=== PATIENT | female | born 1975 | race Caucasian/White ===

== ENCOUNTER 2018-10-25 06:37 | Day surgery (SDC) | payer OTHER ==
[~2018-10-25 06:37] MED LIST: ATACAND HCT 161 EACH; CLONAZEPAM1 MG; CYMBALTA60 MG; FORTAMET500 MG; LIPITOR40 MG; NEURONTIN300 MG; PROTONIX40 M1
[2018-10-25] MEDS ORDERED: PERCOCET 5-3251 EACH PO (10:05)
== END 2018-10-25 14:00 | disposition home or self-care (01) ==
LOC: CIR.AMB 06:37
DX: D35.1 Benign neoplasm of parathyroid gland (principal)